=== PATIENT | female | born 1980 | race Caucasian/White ===

== ENCOUNTER 2020-04-21 16:51 | Emergency (ER) | payer OTHER ==
[~2020-04-21] VITALS: Ht 167.6 cm; Wt 132.9 kg
[2020-04-21 17:11] VITALS: Ht 167.6 cm; Wt 132.9 kg
[2020-04-21 18:19] VITALS: BP 140/90
== END 2020-04-21 18:19 | disposition home or self-care (01) ==
LOC: ED 16:51
DX: K05.20 Aggressive periodontitis, unspecified (principal); Z88.8 Allergy status to other drugs, medicaments and biological substances
CPT/HCPCS: J1885

== ENCOUNTER 2020-04-22 14:44 | Emergency (ER) | payer OTHER ==
[~2020-04-22] VITALS: Ht 170.2 cm; Wt 135.2 kg
[2020-04-22 15:25] VITALS: BP 146/90; Ht 170.2 cm; Wt 135.2 kg
== END 2020-04-22 16:53 | disposition home or self-care (01) ==
LOC: ED 14:44
DX: K08.89 Other specified disorders of teeth and supporting structures (principal); K05.30 Chronic periodontitis, unspecified; Z88.5 Allergy status to narcotic agent; Z90.49 Acquired absence of other specified parts of digestive tract
CPT/HCPCS: Q0162